=== PATIENT | male | born 1970 | race African-American/Black ===

== ENCOUNTER 2019-09-02 15:48 | Emergency (ER) | payer OTHER ==
[~2019-09-02] VITALS: Ht 185.4 cm; Wt 93.0 kg
[~2019-09-02 15:48] MED LIST: BACTRIM DS TAB1 EAC1 PO; FLEXERIL; FLOMAX PO; IBUPROFEN 200200 M1; IBUPROFEN 600600 M1 PO; KEFLEX500 MG PO; NEXIUM 40 MG CA40 M1 PO; NORCO 5-325 TA1 EACH PO; PENICILLIN V P500 MG PO; TRAMADOL 50 MG50 MG PO; ZOFRAN 4 MG ORAL4 M1 DIS; [UNRECOGNIZED DRUG - REMARK]
[2019-09-02 16:05] LABS: URINE BILIRUBIN NEGATIVE (Negative); URINE BLOOD TRACE (Negative); URINE CLARITY CLEAR; URINE COLOR YELLOW; URINE GLUCOSE-RANDOM* NEGATIVE (Negative); URINE KETONES NEGATIVE (Negative); URINE LEUKOCYTES-REFLEX NEGATIVE (Negative); URINE NITRITE-REFLEX NEGATIVE (Negative); URINE PROTEIN (DIPSTICK) NEGATIVE (Negative); URINE SPECIFIC GRAVITY 1.025 (1.005-1.035); URINE UROBILINOGEN 0.2 E.U./dl (0.2-1.0)
[2019-09-02 16:48] LABS: ABSOLUTE NEUTROPHILS 1.7 thou/uL (1.4-8.2); BASOPHILS 1.8 % (0.0-2.0); EOSINOPHILS 2.2 % (0.0-3.0); HEMATOCRIT 42.3 % (42.0-52.0); HEMOGLOBIN 14.2 gm/dL (14.0-18.0); MCH 29.6 pg (26.0-34.0); MCHC 33.5 g/dL (28.0-37.0); MCV 88.3 fL (80.0-100.0); MONOCYTES 6.5 % (1.0-8.0); PLATELET COUNT 250 thou/uL (150-400); POLYS 40.5 % (36.0-66.0); RBC 4.79 mil/uL (4.50-6.00); RDW 12.9 % (10.5-14.5); WBC 4.2 thou/uL (4.0-11.0)
[2019-09-02 16:56] LABS: POTASSIUM 3.9 mmol/L (3.5-5.1)
[2019-09-02 17:02] LABS: ALBUMIN 3.4 g/dL (3.4-5.0); TOTAL BILIRUBIN 0.2 mg/dL (<0.1-1.0); TOTAL PROTEIN 6.8 g/dL (6.4-8.2)
[2019-09-02] MEDS ORDERED: MOBIC15 MG PO (18:16)
[2019-09-02] MEDS ORDERED: TIZANIDINE HCL2 M1 PO (18:16)
[2019-09-02] MEDS ORDERED: ULTRAM 50MG TAB50 MG PO (18:16)
[2019-09-02 18:45] VITALS: BP 171/92
== END 2019-09-02 18:45 | disposition home or self-care (01) ==
LOC: ER 15:48
PROVIDERS: Emergency Medicine
DX: M53.3 Sacrococcygeal disorders, not elsewhere classified (principal); F17.210 Nicotine dependence, cigarettes, uncomplicated; Z87.442 Personal history of urinary calculi

== ENCOUNTER 2020-08-20 09:50 | Observation (INO) | payer OTHER ==
[~2020-08-20] VITALS: Ht 185.4 cm; Wt 97.5 kg
[2020-08-20 09:50] VITALS: BP 162/99
[~2020-08-20 09:50] MED LIST changes: +MOBIC15 MG PO; +TIZANIDINE HCL2 M1 PO; +ULTRAM 50MG TAB50 MG PO
--- NOTE | 2020-08-20 10:08 | NUR ---
TAKEN TO CUFF MAKER
[2020-08-20 10:12] VITALS: BP 162/99
[2020-08-20 10:15] LABS: ABSOLUTE NEUTROPHILS 1.9 thou/uL (1.4-8.2); BASOPHILS 1.2 % (0.0-2.0); EOSINOPHILS 2.3 % (0.0-3.0); HEMATOCRIT 44.6 % (42.0-52.0); HEMOGLOBIN 15.1 gm/dL (14.0-18.0); LYMPHOCYTES 45.5 % (24.0-44.0); MCH 29.4 pg (26.0-34.0); MCHC 33.9 g/dL (28.0-37.0); MCV 86.9 fL (80.0-100.0); MONOCYTES 5.9 % (1.0-8.0); PLATELET COUNT 312 thou/uL (150-400); POLYS 45.1 % (36.0-66.0); RBC 5.13 mil/uL (4.50-6.00); RDW 13.1 % (10.5-14.5); WBC 4.2 thou/uL (4.0-11.0)
[2020-08-20 10:17] LABS: ANION GAP 9 mmol/L (7-16); BUN 12 mg/dL (7-18); CHLORIDE 106 mmol/L (98-107); CO2 27 mmol/L (21-32); CREATININE 1.1 mg/dL (0.7-1.3); GLUCOSE 103 mg/dL (74-106); POTASSIUM 3.8 mmol/L (3.5-5.1); SODIUM 142 mmol/L (136-145)
[2020-08-20 10:30] LABS: ALBUMIN 3.6 g/dL (3.4-5.0); SGOT 15 U/L (15-37); SGPT 31 U/L (30-65); TOTAL BILIRUBIN 0.5 mg/dL (0.2-1.0); TOTAL PROTEIN 7.2 g/dL (6.4-8.2); TROPONIN-I <0.06 ng/mL (<0.06)
--- NOTE | 2020-08-20 10:41 | EKG ---
[address] [place] [address] ELECTROCARDIOGRAM REPORT Name: RENE SWENSON Room #: [facility]#: [id number] Admission: 08/20/20 Attend Phys: Discharge: Date of : 74 Report #: [id number] [facility] ED Test Date: 2020-08-20 Test Time: 09:55:40 Pat Name: RENE SWENSON Department: Room: Gender: M Medical Scientific Liaison: : 1970 Requested By: Richard Nina Order Number: [id number] MD: Renato Reynolds Measurements Intervals [place] Rate: 61 P: 63 MA: 185 QRS: 89 QRSD: 163 T: 49 QT: 476 QTc: 480 Interpretive Statements Sinus rhythm LBBB No previous ECG available for comparison Electronically Signed On 08-20-2020 10:41:28 ALLERGY SPECIALIST by Renato Reynolds [email or web address] <ELECTRONICALLY SIGNED> By: Renato Reynolds MD, [facility] 08/20/20 1041 [id number] Renato Reynolds MD, FACC /EPI
[2020-08-20 11:27] LABS: CHOLESTEROL 253 mg/dL (<200); HDL CHOLESTEROL 47 mg/dL (>40); LDL CHOLESTEROL 187 mg/dL (<100); TC:HDL 5.4 Ratio (Not establshd); TRIGLYCERIDE 98 mg/dL (<150); VLDL 20 mg/dL (<40)
--- NOTE | 2020-08-20 14:22 | 2DMMODE ---
[facility] [place] [address] 2 D/M-MODE ECHOCARDIOGRAM Name: RENE SWENSON Room #: REG [facility]#: [id number] Admission: 08/20/20 Attend Phys: Discharge: Date of : 74 Report #: [id number] THIS REPORT FOR: cc: Rinku Cruz MD, Jinming MD Santiago, Patrick MD [facility] ~ APPROVED REPORT Study performed: 08/20/2020 13:00:57 EXAM: Comprehensive 2D, Doppler, and color-flow Echocardiogram Patient Location: In-Patient Room #: 215 Status: routine BSA: 2.22 HR: 53 bpm BP: 162/99 mmHg Other Information Study Quality: Fair Risk Factors: Cardiac Risk Factors: HTN Indications Hypertension/HDD 2D Dimensions IVSd: 12.45 (7-11mm) LVOT Diam: 25.94 (18-24mm) LVDd: 44.13 mm PWd: 11.18 (7-11mm) Ascending Ao: 27.74 (22-36mm) LVDs: 20.88 (25-40mm) Aortic Root: 32.43 mm LV Single Plane 4CH: 63.70 % Volumes Left Atrial Volume (Systole) Single Plane 4CH: 35.08 mL Aortic Valve AoV Peak Walter.: 1.32 m/s AO Peak Gr.: 6.92 mmHg LVOT Max P.86 mmHg LVOT Max V: 0.85 m/s MISTI Vmax: 3.40 cm2 [facility] [address] [place] [address] 2 D/M-MODE ECHOCARDIOGRAM Name: RENE SWENSON Room #: REG [facility]#: [id number] Admission: 08/20/20 Attend Phys: Discharge: Date of : 74 Report #: [id number] Mitral Valve MV Peak Gr.: 1.13 mmHg MV Mean Gr.: 0.48 mmHg E/A Ratio: 1.0 MV Decel. Time: 261.37 ms MV E Max Walter.: 0.43 m/s MV A Walter.: 0.41 m/s MV Max Walter.: 0.53 m/s MV Mean Walter.: 0.31 m/s MV VTI: 202.15 mm MV PHT: 75.80 ms MVA (PHT): 2.13 cm2 Pulmonary Valve PV Peak Walter.: 1.00 m/s PV Peak Gr.: 3.96 mmHg Left Ventricle The left ventricle is normal size. Mild concentric left ventricular hypertrophy. The overall left ventricular systolic function appears normal. LVEF is 55-60%. Right Ventricle The right ventricle is normal size. The right ventricular systolic function is normal. Atria The left atrium size is normal. The right atrium size is normal. Aortic Valve The aortic valve is normal in structure. No aortic regurgitation is present. There is no aortic valvular stenosis. Mitral Valve The mitral valve is normal in structure. Trace mitral regurgitation. No evidence of mitral valve stenosis. Tricuspid Valve The tricuspid valve is normal in structure. Trace tricuspid regurgitation. Pulmonic Valve Pulmonic valve is not well visualized. There is no pulmonic valvular regurgitation. [employer] [facility] [address] [place] [address] 2 D/M-MODE ECHOCARDIOGRAM Name: MESSIRENE Jacobson [id number] Admission: 08/20/20 Attend Phys: Discharge: Date of : 74 Report #: [id number] The aortic root is normal in size. IVC is normal in size and collapses >50% with inspiration. The inferior vena cava is dilated with a decrease in inspiratory collapse. The inferior vena cava is dilated with no inspiratory collapse. The inferior vena cava is not well visualized. IVC is normal in size. IVC is not well visualized. IVC is dilated. IVC is normal in size. <Conclusion> Normal left ventricular size Mild left ventricular concentric hypertrophy EF 55% Normal right ventricular size/function Normal atrial size Color-flow Doppler study was performed of the aortic/mitral/aortic/tricuspid valve Trace mitral valve insufficiency No pericardial effusion <ELECTRONICALLY SIGNED> By: Renato Reynolds MD, [facility] 08/20/20 142 142 1421 Renato Reynolds MD, FACC /INF
[2020-08-20 15:18] VITALS: BP 142/90
--- NOTE | 2020-08-20 16:20 | NUR ---
PT ADMITTED TO CCU AT 1235 FROM [facility]. NSR ON TELE MONITOR. PT WAS EDUCATED ON BODY POSITIONING AND PROTOCAL POST HEART CATH. INSERTION SITE IS C/D/I. PT DOES HAVE PAIN, PROVIDER WAS NOTIFIED. PT AFEBRILE, ADEQUATE UOP, NO BM, TOLERATING DIET. PT AND HAVE BEEN UPDATED AND EDUCATED ON PT CONDITION AND POC. PT PROGRESSING TOWARDS POC.
[2020-08-20 20:28] VITALS: BP 145/88
[2020-08-20 23:45] VITALS: BP 148/81
[2020-08-21 03:14] VITALS: BP 138/81
[2020-08-21 06:01] LABS: HEMOGLOBIN 13.8 gm/dL (14.0-18.0); MCH 29.5 pg (26.0-34.0); MCHC 33.8 g/dL (28.0-37.0); MCV 87.5 fL (80.0-100.0); RBC 4.69 mil/uL (4.50-6.00); RDW 12.8 % (10.5-14.5); WBC 5.2 thou/uL (4.0-11.0)
[2020-08-21 06:28] LABS: ALBUMIN 3.1 g/dL (3.4-5.0); ANION GAP 10 mmol/L (7-16); BUN 11 mg/dL (7-18); CALCIUM 8.4 mg/dL (8.5-10.1); CHLORIDE 107 mmol/L (98-107); CO2 25 mmol/L (21-32); CREATININE 1.1 mg/dL (0.7-1.3); GLUCOSE 99 mg/dL (74-106); POTASSIUM 3.6 mmol/L (3.5-5.1); SGOT 13 U/L (15-37); SGPT 26 U/L (30-65); SODIUM 142 mmol/L (136-145); TOTAL BILIRUBIN 0.4 mg/dL (0.2-1.0); TOTAL PROTEIN 6.5 g/dL (6.4-8.2); TROPONIN-I <0.06 ng/mL (<0.06)
[2020-08-21] MEDS ORDERED: EFFIENT10 MG PO (06:55)
[2020-08-21] MEDS ORDERED: TOPROL XL25 MG PO (06:55)
[2020-08-21] MEDS ORDERED: NORVASC10 MG PO (06:55)
[2020-08-21] MEDS ORDERED: ASPIRIN325 PO (06:55)
[2020-08-21] MEDS ORDERED: LIPITOR40 MG PO (06:55)
--- NOTE | 2020-08-21 07:36 | EKG ---
[address] [place] [address] ELECTROCARDIOGRAM REPORT Name: RENE SWENSON Room #: 218- ADM IN M.R.#: [id number] Admission: 08/20/20 Attend Phys: Jacinto Christie MD, Discharge: Date of : 74 Report #: [id number] [facility] Test Date: 2020-08-21 Test Time: 07:13:25 Pat Name: RENE SWENSON Department: Room: 218 P Gender: M Supply Analyst: GRAYSON : 1970 Requested By: Dedra Rodríguez Order Number: [id number] MD: Renato Reynolds Measurements Intervals [place] Rate: 55 P: 65 NM: 188 QRS: 54 QRSD: 158 T: 24 QT: 506 QTc: 484 Interpretive Statements Sinus rhythm Probable left ventricular hypertrophy Lateral infarct, acute (LAD) Anterior Q waves, possibly due to LVH Compared to ECG 08/20/2020 09:55:40 Myocardial infarct finding now present Left ventricular hypertrophy now present Q waves now present Left bundle-branch block no longer present Electronically Signed On 08-21-2020 7:36:16 UNIFORM MAKER by Renato Reynolds [email or web address] <ELECTRONICALLY SIGNED> By: Renato Reynolds MD, [facility] 08/21/20 0736 2 2 Renato Reynolds MD, [facility] /EPI
--- NOTE | 2020-08-21 07:50 | NUR ---
ASSUMED PATIENT CARE AT 1845. VITAL SIGNS STABLE WITH PATIENT HAVING NO COMPLAINTS OF PAIN CARDIAC OR OTHERWISE. FULLY ALERT AND ORIENTED, PATIENT IS ABLE TO CALL APPROPRIATELY FOR NEEDS AND PARTICIPATE IN CARE. PATIENT REMAINED IN SINUS RHYTHM TO SINUS BRADYCARDIA THROUGHOUT SHIFT. CARDIAC CATHETER SITE CLEAN, DRY, AND INTACT WITH NO EVIDENCE OF HEMATOMA. PATIENT IS UP AD THOM AND APPEARS STRONG AND BALANCED WHEN WALKING. EXPECTED DISCHARGE THIS AFTERNOON AFTER LUNCH. CONTINUE PLAN OF CARE.
[2020-08-21 08:18] VITALS: BP 136/81
[2020-08-21 11:56] VITALS: BP 148/77
--- NOTE | 2020-08-21 13:09 | NUR ---
LONG DISCUSSION ON COMPLIANCE WITH NEW MEDICATION REGIME HE HAS A NEW STENT EXPLAINED IF HE DOESN'T TAKE HIS PLAVIX HE COULD HAVE BLOOD CLOTS, ETC. VERBALIZED UNDERSTANDING. IN ROOM WITH PTTrena NUÑEZ OF TEACH AND TRAIN TODAY ON DIET CHANGES AND SMOKING CESSATION , HE IS INTERESTED IN CHANTIX AND TOLD HIM TO GET WITH A DOCTOR OF OPTOMETRY DR. JENKINS WOULD ENCOURAGE HIM TO DO SUCH WELL. HE HAS BEEN SB MOST OF THE MORNING. DENIES ANY CHEST PAIN OTHER THEN "SLIGHT DISCOMFORT AT CATH SITE"..
[2020-08-21 15:10] VITALS: BP 138/72
[2020-08-21 15:12] VITALS: BP 138/72
--- NOTE | 2020-08-21 17:32 | CATHLAB ---
[facility] [email or web address] [address] INVASIVE PROCEDURE REPORT Name: MESSIRENE Jacobson Room #: 218-[facility] Carl Sun#: [id number] Admission: 08/20/20 Attend Phys: Jacinto Christie MD, Discharge: Date of : 74 Report #: [id number] THIS REPORT FOR: cc: Rinku Cruz MD, Jinming MD Mancuso, Gerald M. MD [facility] ~ APPROVED REPORT Study performed: 08/20/2020 10:02:05 Patient Details The patient is a 50 year-old male Event Personnel Jacinto Christie Recorder Helper Seismograph, Agustin Pickering RTR ScrubJasper Dexter RN RN, Ang Rangel RTR Monitor, Zora Tello RTR Construction Services Technician Procedures Performed Art Access - R femoral artery* Left Heart Cath w/or w/o Coronaries [id number] [facility] Place w/wo Plasty Single OM 619127 Abdominal Aortography 580007 34723 Initial Mod Sed Same Phys/QHP Gr 664019 75315 Mod Sed Same Phys/QHP Ea 604176 Indication STEMI , Chest pain Procedure Narrative The Right Groin^ was infiltrated with 1% Lidocaine subcutaneous anesthesia. A PINNACLE 6FR Sheath #[id number] sheath was inserted into the RFA^. Coronary angiography was performed using coronary diagnostic catheters. The right coronary system was accessed and visualized with a JR4 catheter. The left coronary system was accessed and visualized with a JL4 catheter. The left ventricle was accessed and visualized with a PIGTAIL catheter. Left ventriculogram was performed in 30 degree projection. An aortogram of the abdominal aorta was performed. Closure device was deployed with a 6 Fr MYNXGRIP 6/7F #[id number]. Hemostasis was obtained with manual pressure following sheath removal without any complications. The patient tolerated the procedure well and there were no complications associated with the procedure. There was no hematoma. Intraoperative Conscious Sedation Sedation start time: 102 Case end Time: [facility] [address] [place] [address] INVASIVE PROCEDURE REPORT Name: RENE PICKERING Kavon Room #: 218-P [facility] IN [facility]#: [id number] Admission: 08/20/20 Attend Phys: Jacinto Christie, Discharge: Date of : 74 Report #: [id number] Fentanyl 50 mcg Versed 1 mg Fluoro Time: 7.50 minutes Dose: DAP 36406.10 cGycm2 2422 mGy Contrast Type and Amount: Visipaque 230 ml Hemodynamics The aortic pressure is 147/77 mmHg with a mean of 50 mmHg. The left ventricular pressure is 149/1 mmHg with a mean of mmHg. The left ventricular end diastolic pressure is 11 mmHg. PCI Technique Lesion Percutaneous coronary intervention was performed on the first obtuse marginal branch segment. A LAUNCHER 6FR EBU 3.5 #[id number] Guide Catheter was used to engage the ostium. A Luge Wire .014 x 182CM #[id number] Interventional Guidewire was used to cross the lesion. STENT DEPLOYMENT A drug-eluting stent RESOLUTE JASPAL OTW 2.5 X 12 #[id number] was inserted and inflated up to 16.00atm for 35seconds. POST STENT DEPLOYMENT BALLOON DILATION A Balloon catheter TREK OTW 3.0 X 8 was inserted and inflated up to 12.00atm for 31seconds. Additional Inflation: 14.00atm for 18seconds. Conclusion #1. Successful PTCA stent of a proximal distal OM branch hazy 70% irregularity suspected culprit 2.5 x 12 Jaspal postdilated 3.0 mm EULALIO grade III flow. #2 left main mild disease giving rise to LAD and circumflex. #3 LAD with mild diffuse irregularities extends around the apex. No occlusive disease. #4 dominant right coronary with mild to irregularity. #5 normal left ventricular size there is a subtle area inferior mid inferior wall of hypokinesis EF is 55% #6 abdominal aortogram mild tortuosity but no aneurysm. Recommendations and plan: This appears to be a lysed clot in that area in the first OM with some irregularity. Successfully stented [facility] [address] [place] [address] INVASIVE PROCEDURE REPORT Name: REEN PICKERING Room #: 218-P [facility] IN M.R.#: [id number] Admission: 08/20/20 Attend Phys: Jacinto Christie, Discharge: Date of : 74 Report #: [id number] continue dual antiplatelet therapy. Expect the subtle wall motion abnormality to resolve. To CCU in stable condition. <ELECTRONICALLY SIGNED> By: Jacinto Christie MD, FACC 08/21/201731 31 31 Jacinto Christie MD, FACC /INF
--- NOTE | 2020-08-25 13:27 | H ---
[facility] [place] [address] HISTORY AND PHYSICAL Name: RENE SWENSON Room #: 218-P [facility] Carl Sun#: [id number] Admission: 08/20/20 Attend Phys: Jacnito Christie MD, Discharge: 08/21/20 Date of : 74 Report #: [id number] THIS REPORT FOR: cc: Rinku Cruz MD, Jinming MD Mancuso, Gerald M. MD [facility] ~ DATE OF SERVICE: 08/20/2020 HISTORY OF PRESENT ILLNESS: The patient is a 50-year-old male who presents to the emergency room via EMS with onset of chest pain, shortness of breath and coughing. He states he awoken with this approximately 2 hours prior to myself being called here and had, had some hint over the week that something was not right with some fatigue, but no real chest pain. He has no documented coronary artery disease. The EKG is showing left bundle branch block with ST elevation in 1, aVL and V4. He is in moderate amount of distress and significant chest discomfort, which radiate into his neck. He takes blood pressure and cholesterol medicines. We believe one is metoprolol. I do not have the list. He denies diabetes. He states he takes cholesterol and blood pressure medicine. PAST MEDICAL HISTORY: Positive for back surgery, hypercholesterolemia and hypertension. FAMILY HISTORY: His father, he believes had a bypass in his 50s or 60s, but from cancer. SOCIAL HISTORY: He is , with children. He is a daily smoker. No significant alcohol. REVIEW OF SYSTEMS: Negative except for stated above. PHYSICAL EXAMINATION: VITAL SIGNS: Blood pressure 164/94, pulse 60s. HEENT: Eyes reveal xanthelasmas. Pharynx is clear. NECK: Shows preserved upstrokes without JVD or bruits. LUNGS: Clear anteriorly. CARDIOVASCULAR: Regular rate and rhythm, S1, S2. ABDOMEN: Slightly protuberant, nontender. EXTREMITIES: Trace of edemas. Pulses diminished. NEUROLOGIC: Nonfocal. SKIN: Warm and dry without xanthoma or ulcer. MUSCULOSKELETAL: No gross joint deformity. ASSESSMENT: 1. Acute lateral wall myocardial infarction. 2. Hypertension. [facility] [address] [place] [address] HISTORY AND PHYSICAL Name: RENE SWENSON [id number] Admission: 08/20/20 Attend Phys: Jacinto Christie MD, Discharge: 08/21/20 Date of : 74 Report #: [id number] 3. Hypercholesterolemia. 4. Tobacco abuse. RECOMMENDATIONS AND PLAN: We will add aspirin, atorvastatin 80, heparin bolus, proceed to the catheterization lab emergently for diagnostic cardiac catheterization and probable intervention. Risks, benefits, alternatives discussed with the patient. <ELECTRONICALLY SIGNED> By: Jacinto Christie MD, [facility] 08/25/20 1327 1023 1121 Jacinto Christie MD, FACC /nt
== END 2020-08-21 16:00 | disposition home or self-care (01) ==
LOC: ER 09:50 → 2N 15:16
PROVIDERS: Emergency Medicine; Nurse Practitioner Adult Health; ADMIT Internal Medicine Cardiovascular Disease; ATTEND Internal Medicine Cardiovascular Disease
DX: I21.3 ST elevation (STEMI) myocardial infarction of unspecified site (principal); I10 Essential (primary) hypertension; E78.5 Hyperlipidemia, unspecified; E78.00 Pure hypercholesterolemia, unspecified; F17.210 Nicotine dependence, cigarettes, uncomplicated; Z98.890 Other specified postprocedural states; Z79.899 Other long term (current) drug therapy
CPT/HCPCS: 10081

== ENCOUNTER → 2020-09-22 | Outpatient (CLI) | payer OTHER ==
[~2020-09-22] MED LIST changes: +ASPIRIN325 PO; +EFFIENT10 MG PO; +LIPITOR40 MG PO; +NORVASC10 MG PO; +TOPROL XL25 MG PO
== END ==
LOC: SJCVC 14:23
PROVIDERS: ATTEND Internal Medicine Cardiovascular Disease
DX: R94.31 Abnormal electrocardiogram [ECG] [EKG] (principal); I25.10 Atherosclerotic heart disease of native coronary artery without angina pectoris; I10 Essential (primary) hypertension; E78.00 Pure hypercholesterolemia, unspecified; R06.00 Dyspnea, unspecified; K21.9 Gastro-esophageal reflux disease without esophagitis; R00.1 Bradycardia, unspecified; I25.2 Old myocardial infarction; F12.90 Cannabis use, unspecified, uncomplicated; Z79.899 Other long term (current) drug therapy

== ENCOUNTER → 2021-04-27 | Outpatient (CLI) | payer OTHER | LOC: SJCVC 13:35 | PROVIDERS: ATTEND Internal Medicine Cardiovascular Disease | DX: R94.31 Abnormal electrocardiogram [ECG] [EKG] (principal); I25.10 Atherosclerotic heart disease of native coronary artery without angina pectoris; E78.00 Pure hypercholesterolemia, unspecified; I10 Essential (primary) hypertension; K21.9 Gastro-esophageal reflux disease without esophagitis; M54.9 Dorsalgia, unspecified; G89.29 Other chronic pain; I44.7 Left bundle-branch block, unspecified; E78.5 Hyperlipidemia, unspecified; Z79.82 Long term (current) use of aspirin; Z79.899 Other long term (current) drug therapy ==